=== PATIENT | male | born 1950 | race Hispanic/Latino ===

== ENCOUNTER 2018-07-31 09:59 | Observation (INO) | payer MEDICARE ==
--- NOTE | 2018-07-28 12:26 | Diagnostic Imaging Report ---
EXAMINATION: CHEST 2 VIEWS INDICATION: Pre-admit COMPARISON: None FINDINGS: TUBES and LINES: None. LUNGS: Low lung volumes. There is no evidence of pneumonia or pulmonary edema. Mild patchy bibasilar opacities, likely atelectasis. PLEURA: No pleural effusion or pneumothorax. HEART AND MEDIASTINUM: The cardiomediastinal silhouette is unremarkable. Atherosclerotic calcifications of the aortic arch. BONES AND SOFT TISSUES: No acute osseous lesion. Soft tissues are unremarkable. UPPER ABDOMEN: No free air under the diaphragm. Cholecystectomy clips project over the right upper quadrant. IMPRESSION: No acute radiographic amount he. Signed by: Dr. Waylon Beach MD on 07/28/2018 12:22 PM
[~2018-07-31] VITALS: Ht 167.6 cm; Wt 109.5 kg
[~2018-07-31 09:59] MED LIST: ATENOLOL50 MG PO; ATORVASTATIN CA10 MG PO; FLUTICASONE; HYZAAR 100-12.1 EACH PO; LATANOPROST2.5 ML OP; LORATADINE10 MG PO; METFORMIN HCL500 MG PO; NABUMETONE500 MG PO
--- OUTSIDE RECORDS SUMMARY | 2018-07-31 10:02 | XMS REPORT ---
Author Author [facility] Address Unknown Phone Unavailable Care Team Providers Care [employer]als[employer] Apprentice Name Role Phone SELINA RENEE Unavailable Unavailable Payers Payer Name Policy Type Policy Number Effective Date Expiration Date Problems This patient has no known problems. Allergies, Adverse Reactions, Alerts Allergy Name Allergy Type Status Severity Reaction(s) Onset Date Inactive Date Treating Clinician Comments No Known Allergies DA Active U 2017-06-27 00:00:00 Medications This patient has no known medications. Results Test Description Test Time Test Comments Text Results Atomic Results Result Comments CHEST 2 VIEWS 2018-07-28 12:21:00 [place] [id number] Patient Name: NINA BONE MR #: [id number] : 1950 Age/Sex: 68/M Req #: [id number] Adm Physician: Ordered by: SELNIA RENEE MD Report #: [id number] Location: OR Room/Bed: Procedure: [id number] DX/CHEST 2 VIEWS Exam Date: 07/28/18 Exam Time: 1125 REPORT STATUS: Signed EXAMINATION: CHEST 2 VIEWS INDICATION: Pre-admit COMPARISON: None FINDINGS: TUBES and LINES: None. LUNGS: Low lung volumes. There is no evidence of pneumonia or pulmonary edema. Mild patchy bibasilar opacities, likely atelectasis. PLEURA: No pleural effusion or pneumothorax. HEART AND MEDIASTINUM: The cardiomediastinal silhouette is unremarkable. Atherosclerotic calcifications of the aortic arch. BONES AND SOFT TISSUES: No acute osseous lesion. Soft tissues are unremarkable. UPPER ABDOMEN: No free air under the diaphragm. Cholecystectomy clips project over the right upper quadrant. IMPRESSION: No acute radiographic amount he. Signed by: Dr. Chandler Jacobs MD on 07/28/2018 12:22 PM Dictated By: CHANDLER JACOBS MD 1222 Transcribed By: CHRISTIE on 07/28/18 1222 COPY TO: SELINA RENEE MD
--- OUTSIDE RECORDS SUMMARY | 2018-07-31 10:02 | XMS REPORT | Clinical Summary ---
Author Author [facility] Organization [facility] [employer] Address Unknown Phone Unavailable Care Team Providers Care Engine Dispatcher Name Role Phone Radha Corona MD PCP Allergies Comments Active Allergy Reactions Severity Noted Date cough Lisinopril 12/02/2017 Medications End Date Status Medication Sig Dispensed Refills Start Date Active clotrimazole 1 % Apply to both 1 Tube 0 ointmentIndications: feet twice 7 Tinea pedis of both feet daily x 2 weeks. Active blood sugar diagnostic Monitor 100 strip 2 strips (MovableTOUCH ULTRA Glucose 2 7 TEST) strip test times daily stripsIndications: Type 2 DX: Type 2 diabetes mellitus without diabetes complication, without mellitus long-term current use of without insulin (HCC) complication, without long-term current use of insulin (E11.9) Active lancets miscIndications: Monitor 100 each 2 Type 2 diabetes mellitus Glucose 2 7 without complication, times daily without long-term current DX: Type 2 use of insulin (HCC) diabetes mellitus without complication, without long-term current use of insulin (E11.9) 12/20/2018 Active latanoprost (XALATAN) Administer 1 2.5 mL 3 0.005 % ophthalmic drop to both 8 solutionIndications: eyes nightly. Primary open angle glaucoma of right eye, moderate stage 01/09/2019 Active vit Take 1 180 capsule 3 C,J-Hl-qjgfs-lutein-zeaxa capsule by 8 n [id number] mouth 2 (two) sh-jteq-da-mg times a day. capsuleIndications: Macular degeneration of both eyes 04/14/2019 Active loratadine (CLARITIN) 10 Take 1 tablet 30 tablet 2 mg tablet (10 mg total) 8 by mouth daily. Active fluticasone (FLONASE) 50 2 sprays (100 15.8 mL 5 mcg/actuation nasal spray mcg total) by 8 Each Nare route daily. Active losartan-hydrochlorothiaz Take 1 tablet 90 tablet 0 omar (HYZAAR) 50-12.5 mg by mouth 8 per tablet daily. Active atenolol (TENORMIN) 50 MG Take 1 tablet 90 tablet 0 tabletIndications: (50 mg total) 8 Essential hypertension by mouth daily. Active metFORMIN (GLUCOPHAGE) Take 1 tablet 90 tablet 0 500 mg tabletIndications: (500 mg 8 Controlled type 2 total) by diabetes mellitus with mouth 2 (two) diabetic polyneuropathy, times a day without long-term current with meals. use of insulin (HCC) 08/04/2017 blood-glucose meter One touch 1 each 0 kitIndications: Type 2 Monitor Check 7 diabetes mellitus without Glucose 2 complication, without times daily long-term current use of Type 2 insulin (HCC) diabetes mellitus without complication, w/o long-term current use of insulin (E11.9) 10/05/2017 vit Take 1 180 capsule 3 C,T-Bz-mfvqj-lutein-zeaxa capsule by 7 n [id number] mouth 2 (two) os-wguq-gc-mg capsule times a day. 10/31/2017 Discontinued VENTOLIN HFA 90 0 mcg/actuation inhaler 7 10/31/2017 Discontinued HYDROcodone-acetaminophen 0 (NORCO) 5-325 mg per 8 tablet 10/31/2017 Discontinued meloxicam (MOBIC) 15 mg Take 1 tablet 30 tablet 1 tablet (15 mg total) 8 by mouth daily as needed for moderate pain. 08/15/2017 Discontinued tiZANidine (ZANAFLEX) 4 Take 1 tablet 45 tablet 1 MG tablet (4 mg total) 8 by mouth every 8 (eight) hours as needed for muscle spasms for up to 30 days. 10/31/2017 Discontinued lisinopril Take 1 tablet 90 tablet 0 (PRINIVIL,ZESTRIL) 20 mg (20 mg total) 8 tabletIndications: by mouth Essential hypertension daily. 01/18/2018 Discontinued atenolol (TENORMIN) 50 MG Take 1 tablet 90 tablet 1 tabletIndications: (50 mg total) 8 Essential hypertension by mouth daily. 12/02/2017 Discontinued gabapentin (NEURONTIN) Take 1 270 capsule 1 300 mg capsule capsule (300 8 mg total) by mouth 3 (three) times a day. 10/31/2017 Discontinued hydroCHLOROthiazide Take 1 tablet 90 tablet 1 (HYDRODIURIL) 12.5 MG (12.5 mg 8 tablet total) by mouth daily. 01/18/2018 Discontinued metFORMIN (GLUCOPHAGE) Take 1 tablet 90 tablet 1 500 mg tabletIndications: (500 mg 8 Controlled type 2 total) by diabetes mellitus with mouth 2 (two) diabetic polyneuropathy, times a day without long-term current with meals. use of insulin (HCC) 09/14/2017 traMADol (ULTRAM) 50 mg Take 1 tablet 60 tablet 1 tabletIndications: (50 mg total) 8 Sciatica, left side by mouth every 6 (six) hours as needed for moderate pain for up to 30 days. 09/14/2017 tiZANidine (ZANAFLEX) 4 Take 1 tablet 45 tablet 1 MG tablet (4 mg total) 8 by mouth every 8 (eight) hours as needed for muscle spasms for up to 30 days. 12/27/2017 Discontinued losartan-hydrochlorothiaz Take 1 tablet 90 tablet 0 omar (HYZAAR) 50-12.5 mg by mouth 8 per tablet daily. 11/15/2017 terbinafine HCl (LamISIL) Take 1 tablet 15 tablet 0 250 mg tablet (250 mg 8 total) by mouth daily for 15 days. 12/02/2017 Discontinued piroxicam (FELDENE) 20 MG Take 1 30 capsule 0 capsule capsule (20 8 mg total) by mouth daily. 01/18/2018 Discontinued losartan-hydrochlorothiaz TAKE 1 TABLET 90 tablet 0 omar (HYZAAR) 50-12.5 mg BY MOUTH ONCE 8 per tablet DAILY 03/03/2018 Discontinued losartan-hydrochlorothiaz Take 1 tablet 90 tablet 0 omar (HYZAAR) 50-12.5 mg by mouth 8 per tablet daily. 03/03/2018 Discontinued metFORMIN (GLUCOPHAGE) Take 1 tablet 90 tablet 0 500 mg tabletIndications: (500 mg 8 Controlled type 2 total) by diabetes mellitus with mouth 2 (two) diabetic polyneuropathy, times a day without long-term current with meals. use of insulin ([facility]) 03/03/2018 Discontinued atenolol (TENORMIN) 50 MG Take 1 tablet 90 tablet 0 tabletIndications: (50 mg total) 8 Essential hypertension by mouth daily. 03/08/2018 predniSONE (DELTASONE) 20 Take 2 10 tablet 0 mg tablet tablets (40 8 mg total) by mouth daily for 5 days. 04/14/2018 Discontinued loratadine (CLARITIN) 10 Take 1 tablet 30 tablet 2 mg tablet (10 mg total) 8 by mouth daily. 04/14/2018 Discontinued fluticasone (FLONASE) 50 2 sprays (100 15.8 mL 0 mcg/actuation nasal spray mcg total) by 8 Each Nare route daily. 03/03/2018 Discontinued pneumococcal Inject 0.5 mL 0.5 mL 0 polysaccharide 23-valent into the 8 (PNEUMOVAX 23) 25 mcg/0.5 shoulder, mL vaccine thigh, or buttocks once for 1 dose. 06/02/2018 Discontinued losartan-hydrochlorothiaz Take 1 tablet 90 tablet 0 omar (HYZAAR) 50-12.5 mg by mouth 8 per tablet daily. 06/02/2018 Discontinued atenolol (TENORMIN) 50 MG Take 1 tablet 90 tablet 0 tabletIndications: (50 mg total) 8 Essential hypertension by mouth daily. 06/02/2018 Discontinued metFORMIN (GLUCOPHAGE) Take 1 tablet 90 tablet 0 500 mg tabletIndications: (500 mg 8 Controlled type 2 total) by diabetes mellitus with mouth 2 (two) diabetic polyneuropathy, times a day without long-term current with meals. use of insulin ([facility]) 05/14/2018 ondansetron ODT (ZOFRAN Take 1 tablet 30 tablet 0 10/26/201 ODT) 4 MG disintegrating (4 mg total) 8 tablet by mouth every 8 (eight) hours as needed for nausea or vomiting for up to 30 days. 06/12/2018 amoxicillin-pot Take 1 tablet 20 tablet 0 clavulanate (AUGMENTIN) by mouth 2 8 875-125 mg per tablet (two) times a day for 10 days. 07/02/2018 atorvastatin (LIPITOR) 10 Take 1 tablet 90 tablet 1 MG tablet (10 mg total) 8 by mouth daily for 30 days. Active Problems Problem Noted Date Optic nerve cupping of both eyes 01/09/2018 Combined forms of age-related cataract of both eyes 01/09/2018 Macular degeneration of both eyes 01/09/2018 Primary osteoarthritis of left knee 12/20/2017 Bilateral primary osteoarthritis of knee 11/01/2017 Knee pain 10/31/2017 Controlled type 2 diabetes mellitus with diabetic polyneuropathy, without 07/25/2017 long-term current use of insulin Meibomian gland dysfunction (MGD) of upper and lower lids of both eyes 05/10/2017 Glaucoma suspect of both eyes 05/10/2017 Nuclear senile cataract of both eyes 05/10/2017 Erectile dysfunction 04/21/2017 Sciatica, left side 04/21/2017 Obesity (BMI 35.0-39.9 without comorbidity) 01/17/2017 Essential hypertension 08/04/2016 Hyperlipidemia LDL goal <70 08/04/2016 Resolved Problems Problem Noted Date Resolved Date Tinea pedis of both feet 08/04/2016 06/02/2018 Encounters Care Team Description Date Type Specialty Radha Corona MD Controlled type 2 diabetes mellitus with diabetic polyneuropathy, without long-term current use of insulin (HCC) (Primary Dx); Essential hypertension; Hyperlipidemia LDL goal <70; Obesity (BMI 35.0-39.9 without comorbidity); Chronic maxillary sinusitis 06/02/2018 Office Visit Internal Medicine Provider, Unknown 04/20/2018 Orders Only Internal Medicine Radha Corona MD Dizziness (Primary Dx); Viral illness; Nausea and vomiting, intractability of vomiting not specified, unspecified vomiting type 04/14/2018 Office Visit Internal Medicine Radha Corona MD Chronic allergic rhinitis, unspecified seasonality, unspecified trigger (Primary Dx); Controlled type 2 diabetes mellitus with diabetic polyneuropathy, without long- term current use of insulin; Essential hypertension; Obesity (BMI 35.0-39.9 without comorbidity); Immunization due 03/03/2018 Office Visit Internal Medicine Radha Corona MD 01/23/2018 Telephone Family Medicine Radha Corona MD Encounter for diabetic foot exam (Primary Dx) 01/19/2018 Clinical Internal Medicine Support Radha Corona MD Controlled type 2 diabetes mellitus with diabetic polyneuropathy, without long-term current use of insulin; Essential hypertension 01/18/2018 Orders Only Internal Medicine Radha Corona MD 01/18/2018 Refill Internal Medicine Oksana Beaulieu MD 01/12/2018 Telephone Ophthalmology Matt Iniguez MD Primary osteoarthritis of left knee (Primary Dx) 01/10/2018 Clinical Sports Medicine Oksana Osborne MD 01/10/2018 Telephone Ophthalmology Oksana Beaulieu MD Optic nerve cupping of both eyes (Primary Dx); Combined forms of age-related cataract of both eyes; Macular degeneration of both eyes 01/09/2018 Office Visit Ophthalmology Matt Iniguez MD Primary osteoarthritis of left knee (Primary Dx) 12/27/2017 Clinical Sports Medicine Radha Oneill MD 12/27/2017 Refill Internal Medicine Matt Iniguez MD Bilateral primary osteoarthritis of knee (Primary Dx); Primary osteoarthritis of left knee 12/20/2017 Office Visit Sports Medicine Oksana Beaulieu MD Primary open angle glaucoma of right eye, moderate stage (Primary Dx) 12/20/2017 Orders Only Ophthalmology Oksana Beaulieu MD 12/20/2017 Documentation Ophthalmology Richard Holguin MA Testing Only 12/14/2017 Clinical Ophthalmology Support Radha Corona MD Essential hypertension (Primary Dx); Controlled type 2 diabetes mellitus with diabetic polyneuropathy, without long- term current use of insulin 12/02/2017 Office Visit Internal Medicine Sherrie Ott MA Controlled type 2 diabetes mellitus with diabetic polyneuropathy, without long-term current use of insulin (Primary Dx) 12/02/2017 Orders Only Internal Medicine Matt Iniguez MD Primary osteoarthritis of right knee (Primary Dx) 11/08/2017 Clinical Sports Medicine Support Matt Iniguez MD 11/04/2017 Telephone Sports Medicine Matt Iniguez MD Bilateral primary osteoarthritis of knee (Primary Dx); Chronic pain of right knee; Chronic pain of left knee 11/01/2017 Office Visit Sports Medicine Radha Corona MD Controlled type 2 diabetes mellitus with diabetic polyneuropathy, without long-term current use of insulin (Primary Dx); Essential hypertension; Hyperlipidemia LDL goal <70; Knee pain, unspecified chronicity, unspecified laterality; Tinea pedis of both feet; Cough 10/31/2017 Office Visit Internal Medicine Oksana Beaulieu MD Optic nerve cupping of both eyes (Primary Dx) 09/08/2017 Office Visit Ophthalmology Radha Corona MD Controlled type 2 diabetes mellitus with diabetic polyneuropathy, without long-term current use of insulin (Primary Dx); Hyperlipidemia LDL goal <70; Essential hypertension; Sciatica, left side 08/15/2017 Office Visit Internal Medicine after 07/30/2017 Immunizations Name Dates Previously Given Next Due FLUZONE HIGH-DOSE PF 03/03/2018, 04/21/2017 Pneumococcal Conjugate 04/27/2017 13-Valent Pneumococcal 03/03/2018 Polysaccharide Family History Medical History Relation Name Comments Hypertension Brother Diabetes Father No Known Problems Maternal Grandfather No Known Problems Maternal Grandmother Glaucoma Mother Hypertension Mother No Known Problems Paternal Grandfather No Known Problems Paternal Grandmother Diabetes Sister Hypertension Sister Relation Name Status Comments Brother Alive Father Maternal Grandfather Maternal Grandmother Mother Paternal Grandfather Paternal Grandmother Sister Social History Date Tobacco Use Types Packs/Day Years Used Quit: 1984 Former Smoker Cigarettes 1 20 Smokeless Tobacco: Never Used Comments: patient quit 25 years ago Alcohol Use Drinks/Week oz/Week Comments Yes rarely Sex Assigned at Date Recorded Not on file Industry Job Start Date Occupation Not on file Not on file Not on file Travel End Travel History Travel Start No recent travel history available. Last Filed Vital Signs Time Taken Vital Sign Reading 06/02/2018 8:48 AM ORTHOTIST PROSTHETIST Blood Pressure 134/75 06/02/2018 8:48 AM ORTHOTIST PROSTHETIST Pulse 66 06/02/2018 8:48 AM ORTHOTIST PROSTHETIST Temperature 36.4 C (97.6 F) 03/03/2018 9:27 AM CDT Respiratory Rate 18 06/02/2018 8:48 AM ORTHOTIST PROSTHETIST Oxygen Saturation 99% - Inhaled Oxygen - Concentration 06/02/2018 8:48 AM ORTHOTIST PROSTHETIST Weight 105 kg (232 lb) 06/02/2018 8:48 AM ORTHOTIST PROSTHETIST Height 167.6 cm (5' 6") 06/02/2018 8:48 AM ORTHOTIST PROSTHETIST Body Mass Index 37.45 Plan of Treatment Health Maintenance Due Date Last Done Comments SHINGLES VACCINES (2 of 04/27/2018 03/02/2018 2) URINE MICROALBUMIN 10/31/2018 10/31/2017, 08/04/2016 DIABETIC RETINAL EYE EXAM 01/09/2019 01/09/2018, 01/09/2018, 01/09/2018, Additional history exists DIABETIC FOOT EXAM 01/19/2019 01/19/2018, 01/19/2018, 01/19/2018 COLON CANCER SCREENING 01/22/2027 01/22/2017 PNEUMOCOCCAL-13 Completed 04/27/2017, 04/27/2017 INFLUENZA VACCINE Completed 03/03/2018, 04/21/2017, 04/21/2017 PNEUMOCOCCAL Completed 03/03/2018 POLYSACCHARIDE VACCINE AGE 65 AND OVER Procedures Comments Procedure Name Priority Date/Time Associated Diagnosis POC GLYCOSYLATED Routine 06/02/2018 Controlled type 2 HEMOGLOBIN (HGB A1C) 9:05 AM ORTHOTIST PROSTHETIST diabetes mellitus with diabetic polyneuropathy, without long-term current use of insulin (HCC) MRI BRAIN W WO CONTRAST Routine 04/20/2018 MRI ANGIOGRAM NECK W Routine 04/20/2018 CONTRAST MRA HEAD WO CONTRAST Routine 04/20/2018 CT HEAD WO CONTRAST Routine 04/20/2018 PNEUMOCOCCAL Routine 03/03/2018 POLYSACCHARIDE VACCINE 1:28 PM CDT 23-VALENT=>2YO SQ IM FLUZONE HIGH-DOSE PF Routine 03/03/2018 (0.5ML SYRINGE) 1:28 PM CDT POC GLYCOSYLATED Routine 03/03/2018 Controlled type 2 HEMOGLOBIN (HGB A1C) 10:27 AM CDT diabetes mellitus with diabetic polyneuropathy, without long-term current use of insulin IA ARTHROCENTESIS Routine 01/10/2018 Primary osteoarthritis of ASPIR&/INJ MAJOR JT/BURSA 9:15 AM CDT left knee W/O US IA ARTHROCENTESIS Routine 12/27/2017 Primary osteoarthritis of ASPIR&/INJ MAJOR JT/BURSA 10:30 AM CDT left knee W/O US IA ARTHROCENTESIS Routine 12/20/2017 Primary osteoarthritis of ASPIR&/INJ MAJOR JT/BURSA 1:15 PM CDT left knee W/O US AUTOMATED VISUAL FIELD, Routine 12/14/2017 Optic nerve cupping of EXTENDED - OU - BOTH EYES 2:00 PM CDT both eyes Primary open angle glaucoma of right eye, moderate stage OCT, OPTIC NERVE - OU - Routine 12/14/2017 Optic nerve cupping of BOTH EYES 1:59 PM CDT both eyes Primary open angle glaucoma of right eye, moderate stage IA ARTHROCENTESIS Routine 11/08/2017 Primary osteoarthritis of ASPIR&/INJ MAJOR JT/BURSA 1:15 PM CDT right knee W/O US XR KNEE 4+ VW BILATERAL Routine 11/01/2017 Knee sprain, bilateral 8:57 AM CDT IA ARTHROCENTESIS Routine 11/01/2017 Bilateral primary ASPIR&/INJ MAJOR JT/BURSA 8:45 AM CDT osteoarthritis of knee W/O US Chronic pain of left knee MICROALBUMIN / CREATININE Routine 10/31/2017 Hyperlipidemia LDL goal URINE RATIO 11:51 AM CDT <70 LIPID PANEL Routine 10/31/2017 Hyperlipidemia LDL goal 11:51 AM CDT <70 COMPREHENSIVE METABOLIC Routine 10/31/2017 Hyperlipidemia LDL goal PANEL 11:51 AM CDT <70 POC GLYCOSYLATED Routine 10/31/2017 Controlled type 2 HEMOGLOBIN (HGB A1C) 10:55 AM CDT diabetes mellitus with diabetic polyneuropathy, without long-term current use of insulin after 07/30/2017 Results * POC glycosylated hemoglobin (Hb A1C) (06/02/2018 9:05 AM ORTHOTIST PROSTHETIST) Only the most recent of 3 results within the time period is included. POC Hemoglobin A1C 5.6 % Specimen Blood * MRI Brain W Wo Contrast (04/20/2018) Narrative Performed At * MRA Neck W Contrast (04/20/2018) Narrative Performed At * MRA Head Wo Contrast (04/20/2018) Narrative Performed At * CT Head Wo Contrast (04/20/2018) Narrative Performed At * Fluzone High-Dose PF (0.5mL Syringe) (03/03/2018 1:28 PM CDT) * Pneumococcal polysaccharide vaccine 23-valent SQ IM (Pneumovax) (03/03/2018 1:28 PM CDT) * Large Joint Arthrocentesis (01/10/2018 9:15 AM CDT) Narrative Performed At Matt Iniguez MD 01/10/20189:34 AM Large Joint Arthrocentesis Consent given by: patient Site marked: site marked Timeout: Immediately prior to procedure a time out was called to verify the correct patient, procedure, equipment, senior technical support analyst and site/side marked as required Supporting Documentation Indications: pain Procedure Details Preparation: Patient was prepped and draped in the usual sterile fashion Medications provided by specialty pharmacy: yes Location: knee - L knee Left side: Needle size: 20 G Approach: lateral Left knee medications administered: 20 mg sodium hyaluronate (viscosup) 10 mg/mL Patient tolerance: patient tolerated the procedure well with no immediate complications * Large Joint Arthrocentesis (12/27/2017 10:30 AM CDT) Narrative Performed At Matt Iniguez MD 12/27/2017 10:48 AM Large Joint Arthrocentesis Consent given by: patient Site marked: site marked Timeout: Immediately prior to procedure a time out was called to verify the correct patient, procedure, equipment, senior technical support analyst and site/side marked as required Supporting Documentation Indications: pain Procedure Details Preparation: Patient was prepped and draped in the usual sterile fashion Medications provided by specialty pharmacy: yes Location: knee - L knee Left side: Needle size: 20 G Approach: lateral Left knee medications administered: 20 mg sodium hyaluronate (viscosup) 10 mg/mL Patient tolerance: patient tolerated the procedure well with no immediate complications * Large Joint Arthrocentesis (12/20/2017 1:15 PM CDT) Narrative Performed At Matt Iniguez MD 12/20/20172:28 PM Large Joint Arthrocentesis Consent given by: patient Site marked: site marked Timeout: Immediately prior to procedure a time out was called to verify the correct patient, procedure, equipment, senior technical support analyst and site/side marked as required Supporting Documentation Indications: pain Procedure Details Preparation: Patient was prepped and draped in the usual sterile fashion Location: knee - L knee Left side: Needle size: 20 G Approach: lateral Left knee medications administered: 20 mg sodium hyaluronate (viscosup) 10 mg/mL Patient tolerance: patient tolerated the procedure well with no immediate complications * Automated Visual Field, Extended - OU - Both Eyes (12/14/2017 2:00 PM CDT) Narrative Performed At Right Eye Threshold was 24-2. Strategy was ANGUS. Left Eye Threshold was 24-2. Strategy was ANGUS. Notes Ramirez visual field 24 2 was performed.This was unreliable in both eyes due to fixation losses, and also false negative errors.The right eye has a mean deviation of -14.04 and the left eye -2.48.The right eye is a inferior nasal step extending towards an arcuate scotoma.There is a superior nasal step as well.The left eye has nonspecific scattered deviation.This is consistent with the diagnosis of glaucoma particularly in the right eye. * OCT, Optic Nerve - OU - Both Eyes (12/14/2017 1:59 PM CDT) Narrative Performed At Optic nerve OCT was obtained.The global value of 103 and 106 are normal, as is the nerve fiber layer profile.There is some evidence of partial adhesion of the vitreous to the Antonio papillary nerve which may be artificially elevating the nerve fiber layer in both eyes, particularly inferiorly. * Large Joint Arthrocentesis (11/08/2017 1:15 PM CDT) Narrative Performed At Matt Iniguez MD 11/08/20171:18 PM Large Joint Arthrocentesis Consent given by: patient Site marked: site marked Timeout: Immediately prior to procedure a time out was called to verify the correct patient, procedure, equipment, senior technical support analyst and site/side marked as required Supporting Documentation Indications: pain Procedure Details Preparation: Patient was prepped and draped in the usual sterile fashion Location: knee - R knee Right side: Needle size: 20 G Approach: lateral Right knee medications administered: 2 mL bupivacaine 0.5 % (5 mg/mL); 80 mg methylPREDNISolone acetate 80 mg/mL; 5 mL lidocaine 10 mg/mL (1 %) Patient tolerance: patient tolerated the procedure well with no immediate complications * XR Knee 4+ Vw Bilateral (11/01/2017 8:57 AM CDT) Narrative Performed At [facility] Right knee 4 views: Moderate medial and patellofemoral compartment joint space narrowing. No obvious fractures or dislocations Left knee 4 views: Moderate medial and patellofemoral compartment joint space narrowing. No obvious fractures or dislocations Performing Organization Address City/State/Zipcode Phone Number [facility] [address] [place] [address] * Large Joint Arthrocentesis (11/01/2017 8:45 AM CDT) Narrative Performed At Matt Iniguez MD 11/01/2017 10:13 AM Large Joint Arthrocentesis Consent given by: patient Site marked: site marked Timeout: Immediately prior to procedure a time out was called to verify the correct patient, procedure, equipment, senior technical support analyst and site/side marked as required Supporting Documentation Indications: pain Procedure Details Preparation: Patient was prepped and draped in the usual sterile fashion Location: knee - L knee Left side: Needle size: 20 G Approach: lateral Left knee medications administered: 2 mL bupivacaine 0.25 % (2.5 mg/mL); 80 mg methylPREDNISolone acetate 80 mg/mL; 5 mL lidocaine 10 mg/mL (1 %) Patient tolerance: patient tolerated the procedure well with no immediate complications * Microalbumin / creatinine urine ratio (10/31/2017 11:51 AM CDT) Creatinine, urine, random 97 20 - 370 mg/dL [facility] [place] Microalbumin, urine 1.0 See Note: mg/dL [facility] Comment: [place] Reference Range: Reference Range Not established Microalbumin/creatinine 10 <30 mcg/mg creat [facility] ratio Comment: SHEKHAR The ADA defines abnormalities in albumin excretion as follows: Category Result (mcg/mg creatinine) Normal <30 Microalbuminuria 30-299 Clinical albuminuria > JA=605 The ADA recommends that at least two of three specimens collected within a 3-6 month period be abnormal before considering a patient to be within a diagnostic category. Specimen Urine Resulting Agency Comment Performing Organization Information: Site ID: [id number] Name: [facility] Address: [address] [place] [id number] Director: Kristyn Mistry Performing Organization Address [facility] [place] [address] * Lipid panel (10/31/2017 11:51 AM CDT) Cholesterol, total 147 <200 mg/dL [facility] HDL cholesterol 31 (L) >40 mg/dL [facility] [place] Triglycerides 217 (H) <150 mg/dL [facility] [place] LDL cholesterol 85 mg/dL (calc) [facility] calculated Comment: [place] Reference range: <100 Desirable range <100 mg/dL for primary prevention; <70 mg/dL for patients with CHD or diabetic patients with > or=2 CHD risk factors. LDL-C is now calculated using the Delia calculation, which is a validated novel method providing better accuracy than the Friedewald equation in the estimation of LDL-C. Zack RUBIN et al. MORGAN. 2013;310(19): 5806-3303 (http://education.Ringostat.Zarpo/faq/JVL106) Cholesterol/HDL ratio 4.7 <5.0 (calc) [facility] [place] Non-HDL cholesterol 116 <130 mg/dL (calc) [employer] Comment: [place] For patients with diabetes plus 1 major ASCVD risk factor, treating to a non-HDL-C goal of <100 mg/dL (LDL-C of <70 mg/dL) is considered a therapeutic option. Specimen Blood Resulting Agency Comment Performing Organization Information: Site ID: [id number] Name: [employer] [facility] Address: [address] [place] [id number] Director: Kristyn Mistry Performing Organization Address [facility]/[place]code [place] [address] * Comprehensive metabolic panel (10/31/2017 11:51 AM CDT) Glucose 95 65 - 99 mg/dL [employer] Comment: [place] Fasting reference interval BUN, whole blood 20 7 - 25 mg/dL [employer] [place] Creatinine 1.04 0.70 - 1.25 mg/dL [facility] Comment: [place] For patients >49 years of age, the reference limit for Creatinine is approximately 13% higher for people identified as -Namibian. EGFR Non-Afr. Namibian 74 > OR=60 mL/min/1.73m2 [employer] [place] EGFR 86 > OR=60 mL/min/1.73m2 [employer] [place] BUN/creatinine ratio NOT APPLICABLE 6 - 22 (calc) [employer] [place] Sodium 138 135 - 146 mmol/L [employer] [place] Potassium 4.1 3.5 - 5.3 mmol/L [employer] [place] Chloride 103 98 - 110 mmol/L [employer] [facility] CO2 23 20 - 31 mmol/L [employer] [place] Calcium 9.4 8.6 - 10.3 mg/dL [employer] [place] Protein 7.5 6.1 - 8.1 g/dL [employer] [place] Albumin, S 4.0 3.6 - 5.1 g/dL [employer] [place] Globulin, total 3.5 1.9 - 3.7 g/dL (calc) [employer] [place] Albumin/globulin ratio 1.1 1.0 - 2.5 (calc) [employer] [place] Total bilirubin 0.5 0.2 - 1.2 mg/dL [employer] [place] Alkaline phosphatase 45 40 - 115 U/L [employer] [place] AST 24 10 - 35 U/L [employer] [facility] ALT 26 9 - 46 U/L [employer] [place] Resulting Agency Comment Performing Organization Information: Site ID: [id number] Name: [facility] Address: [address] [place] [id number] Director: Kristyn Mistry Performing Organization Address City/State/Zipcode Phone Number [facility] [employer] STELLA [address] [place] [address] after 07/30/2017 Insurance Payer Benefit Subscriber ID Type Phone Address Plan / Group TEXANPLUS TEXANPLUS xxxxxxxxx O [facility] (Home) [place] [address] Advance Directives Patient has advance care planning documents on file. For more information, nancy holman contact: Shekhar Bryant [address] [place] [address]
[2018-07-31] MEDS ORDERED: CEFAZOLIN SOD 2 GM/D5W 50ML 50 ML IV ONE (10:13)
[2018-07-31] MEDS ORDERED: BACITRACIN 50,000 UNIT VIAL ONE (12:08)
[2018-07-31] MEDS ORDERED: ACETAMINOPHEN 1000 MG/100 ML IV PRN (15:15)
[2018-07-31] MEDS ORDERED: ONDANSETRON HCL INJ 2MG/ML 2ML 2 MG/ML VIAL IV PRN (15:15)
[2018-07-31] MEDS ORDERED: DIPHENHYDRAMINE HCL INJ 50 MG/ML VIAL IM/IV PRN (15:15)
[2018-07-31] MEDS ORDERED: NALOXONE HCL INJ 0.4 MG/ML AMP IV PRN (15:15)
[2018-07-31] MEDS ORDERED: HYDROMORPHONE 0.2MG/ML-SOD CHL 30ML PCA SYRINGE IV PRN (15:15)
[2018-07-31] MEDS ORDERED: HYDROMORPHONE 0.2MG/ML-SOD CHL 30ML PCA SYRINGE IV ONE (15:21)
--- OUTSIDE RECORDS SUMMARY | 2018-07-31 16:09 | XMS REPORT | Clinical Summary ---
Author Author [facility] Organization [facility] Address Unknown Phone Unavailable Care Team Providers Care Paper Cone Grader Name Role Phone Radha Corona MD PCP Allergies Comments Active Allergy Reactions Severity Noted Date cough Lisinopril 12/02/2017 Medications End Date Status Medication Sig Dispensed Refills Start Date Active clotrimazole 1 % Apply to both 1 Tube 0 ointmentIndications: feet twice 7 Tinea pedis of both feet daily x 2 weeks. Active blood sugar diagnostic Monitor 100 strip 2 strips ([employer] RunwayTOUCH ULTRA Glucose 2 7 TEST) strip test [...] Active vit Take 1 180 capsule 3 C,R-Tc-gnehn-lutein-zeaxa capsule by 8 n [phone] mouth 2 (two) hk-dakt-bj-mg times a day. capsuleIndications: Macular degeneration of [...] 10/05/2017 vit Take 1 180 capsule 3 C,S-Mt-roaob-lutein-zeaxa capsule by 7 n [phone] mouth 2 (two) ow-ilvx-dl-mg capsule times a day. 10/31/2017 Discontinued VENTOLIN [...] long-term current with meals. use of insulin ([facility]) 03/03/2018 Discontinued atenolol (TENORMIN) 50 MG Take [...] long-term current with meals. use of insulin ([facility]) 05/14/2018 ondansetron ODT (ZOFRAN Take 1 tablet [...] knee 12/20/2017 Office Visit Sports Medicine Oksana Baeulieu MD Primary open angle glaucoma of right [...] Taken Vital Sign Reading 06/02/2018 8:48 AM MULTICULTURAL MANAGER Blood Pressure 134/75 06/02/2018 8:48 AM MULTICULTURAL MANAGER Pulse 66 06/02/2018 8:48 AM MULTICULTURAL MANAGER Temperature 36.4 C (97.6 F) 03/03/2018 9:27 AM CDT Respiratory Rate 18 06/02/2018 8:48 AM MULTICULTURAL MANAGER Oxygen Saturation 99% - Inhaled Oxygen - Concentration 06/02/2018 8:48 AM MULTICULTURAL MANAGER Weight 105 kg (232 lb) 06/02/2018 8:48 AM MULTICULTURAL MANAGER Height 167.6 cm (5' 6") 06/02/2018 8:48 AM MULTICULTURAL MANAGER Body Mass Index 37.45 Plan of Treatment [...] type 2 HEMOGLOBIN (HGB A1C) 9:05 AM MULTICULTURAL MANAGER diabetes mellitus with diabetic polyneuropathy, without long-term [...] polyneuropathy, without long-term current use of insulin SC ARTHROCENTESIS Routine 01/10/2018 Primary osteoarthritis of ASPIR&/INJ MAJOR JT/BURSA 9:15 AM CDT left knee W/O US SC ARTHROCENTESIS Routine 12/27/2017 Primary osteoarthritis of ASPIR&/INJ MAJOR JT/BURSA 10:30 AM CDT left knee W/O US SC ARTHROCENTESIS Routine 12/20/2017 Primary osteoarthritis of ASPIR&/INJ [...] angle glaucoma of right eye, moderate stage SC ARTHROCENTESIS Routine 11/08/2017 Primary osteoarthritis of ASPIR&/INJ MAJOR JT/BURSA 1:15 PM CDT right knee W/O US XR KNEE 4+ VW BILATERAL Routine 11/01/2017 Knee sprain, bilateral 8:57 AM CDT SC ARTHROCENTESIS Routine 11/01/2017 Bilateral primary ASPIR&/INJ MAJOR [...] glycosylated hemoglobin (Hb A1C) (06/02/2018 9:05 AM MULTICULTURAL MANAGER) Only the most recent of 3 results [...] to verify the correct patient, procedure, equipment, support engineer and site/side marked as required Supporting Documentation [...] to verify the correct patient, procedure, equipment, support engineer and site/side marked as required Supporting Documentation [...] to verify the correct patient, procedure, equipment, support engineer and site/side marked as required Supporting Documentation [...] to verify the correct patient, procedure, equipment, support engineer and site/side marked as required Supporting Documentation [...] Performing Organization Address City/State/Zipcode Phone Number [facility] [address] [place] [address] * Large Joint Arthrocentesis (11/01/2017 8:45 AM CDT) Narrative Performed At Matt Iniguez MD 11/01/2017 10:13 AM Large Joint Arthrocentesis Consent given by: patient Site marked: site marked Timeout: Immediately prior to procedure a time out was called to verify the correct patient, procedure, equipment, support engineer and site/side marked as required Supporting Documentation [...] 97 20 - 370 mg/dL [facility] [place] Microalbumin, urine 1.0 See Note: mg/dL [facility] Comment: [place] Reference Range: Reference Range Not established Microalbumin/creatinine 10 <30 mcg/mg creat [facility] ratio Comment: SHEKHAR The ADA defines abnormalities in albumin excretion as follows: Category Result (mcg/mg creatinine) Normal <30 Microalbuminuria 30-299 Clinical albuminuria > ZO=943 The ADA recommends that at least two of three specimens collected within a 3-6 month period be abnormal before considering a patient to be within a diagnostic category. Specimen Urine Resulting Agency Comment Performing Organization Information: Site ID: RGA Name: [facility] Address: [address] [place] [phone] Director: Kristyn Mistry Performing Organization Address [facility] Hospitalcode [place] [address] * Lipid panel (10/31/2017 11:51 AM CDT) Cholesterol, total 147 <200 mg/dL [facility] HDL cholesterol 31 (L) >40 mg/dL [facility] [place] Triglycerides 217 (H) <150 mg/dL [facility] [place] LDL cholesterol 85 mg/dL (calc) [facility] Comment: [place] Reference range: <100 Desirable range <100 mg/dL for primary prevention; <70 mg/dL for patients with CHD or diabetic patients with > or=2 CHD risk factors. LDL-C is now calculated using the Delia calculation, which is a validated novel method providing better accuracy than the Friedewald equation in the estimation of LDL-C. Zack RUBIN et al. MORGAN. 2013;310(19): 5875-2503 (http://education.[employer].Kiyon/faq/QUA595) Cholesterol/HDL ratio 4.7 <5.0 (calc) [facility] [place] Non-HDL cholesterol 116 <130 mg/dL (calc) [facility] Comment: [place] For patients with diabetes plus 1 major ASCVD risk factor, treating to a non-HDL-C goal of <100 mg/dL (LDL-C of <70 mg/dL) is considered a therapeutic option. Specimen Blood Resulting Agency Comment Performing Organization Information: Site ID: RGA Name: [facility] Address: [address] [place] [id number] Director: Kristyn Mistry Performing Organization Address [facility]/[place] [address] * Comprehensive metabolic panel (10/31/2017 11:51 AM CDT) Glucose 95 65 - 99 mg/dL [facility] Comment: [place] Fasting reference interval BUN, whole blood 20 7 - 25 mg/dL [facility] [place] Creatinine 1.04 0.70 - 1.25 mg/dL [facility] Comment: [place] For patients >49 years of age, the reference limit for Creatinine is approximately 13% higher for people identified as -Malaysian. EGFR Non-Afr. Malaysian 74 > OR=60 mL/min/1.73m2 [facility] [place] EGFR 86 > OR=60 mL/min/1.73m2 [facility] [place] BUN/creatinine ratio NOT APPLICABLE 6 - 22 (calc) [facility] [place] Sodium 138 135 - 146 mmol/L [facility] [place] Potassium 4.1 3.5 - 5.3 mmol/L [facility] [place] Chloride 103 98 - 110 mmol/L [employer] [facility] CO2 23 20 - 31 mmol/L [facility] [place] Calcium 9.4 8.6 - 10.3 mg/dL [facility] [place] Protein 7.5 6.1 - 8.1 g/dL [facility] [place] Albumin, S 4.0 3.6 - 5.1 g/dL [facility] [place] Globulin, total 3.5 1.9 - 3.7 g/dL (calc) [facility] [place] Albumin/globulin ratio 1.1 1.0 - 2.5 (calc) [facility] [place] Total bilirubin 0.5 0.2 - 1.2 mg/dL [facility] [place] Alkaline phosphatase 45 40 - 115 U/L [facility] [place] AST 24 10 - 35 U/L [employer] [facility] ALT 26 9 - 46 U/L [facility] [place] Resulting Agency Comment Performing Organization Information: Site ID: RGA [facility]: [facility] Address: [address] [place] [id number] Director: Kristyn Mistry Performing Organization Address City/State/Zipcode Phone Number [facility] [place] [address] [place] [address] after 07/30/2017 Insurance Payer Benefit Subscriber ID Type Phone Address Plan / Group TEXANPLUS TEXANPLUS xxxxxxxxx O [facility] (Home) [place] [address] Advance Directives Patient has advance care planning documents on file. For more information, nancy holman contact: Shekhar Bryant [address] [place] [address]
--- NOTE | 2018-07-31 16:19 | Diagnostic Imaging Report ---
Radiographs of the left knee - 2 views HISTORY: Pain COMPARISON: None available. FINDINGS: Bones: No acute displaced fracture. Osseous alignment is within normal limits. Joints: Patient status post left knee replacement with associated postsurgical change. The surgical hardware is intact without evidence of failure or loosening. Soft tissues: The soft tissues appear unremarkable. IMPRESSION: Patient status post left knee replacement with associated postsurgical change. The surgical hardware is intact without evidence of failure or loosening. Signed by: Dr. Michoacano Downey M.D. on 07/31/2018 4:16 PM
--- NOTE | 2018-07-31 16:20 | NUR ---
RECEIVED PATIENT FROM PACU, PT IS WEARING THIGH HIGH RIKA HOSE AND FOOT SCDs, PATIENT IS RECEIVING 02 AT 2 LITERS MINUTE, HE ALERT AND ORIENTED, NIECE IS AT BEDSIDE, HOB IS LOW FOWLERS, CALL LIGHT IS WITHIN REACH, DIETITIAN TEACHER IS SET TO TO 0.1 MG/10 MINUTES, NO BASAL INFUSION,, PT'S BELONGINGS ARE WITHIN REACH, BED IS IN LOW POSITION, NO DISTRESS NOTED.
[2018-07-31] MEDS: SODIUM CHLORIDE 0.9% 1000ML 1,000 ML IV SCH (16:29)
[2018-07-31 16:37] VITALS: BP 116/54
[2018-07-31 17:07] VITALS: BP 116/64
[2018-07-31 17:27] VITALS: BP 116/54
[2018-07-31] MEDS ORDERED: EPHEDRINE SULFATE INJ 50 MG/10 ML SYR ONE (18:43)
[2018-07-31] MEDS ORDERED: LIDOCAINE HCL 2% LOCAL INJ 5 ML SDV VIAL INJ ONE (18:43)
[2018-07-31] MEDS ORDERED: SEVOFLURANE INHAL SOLN 250 ML PEN BTL ONE (18:43)
[2018-07-31] MEDS ORDERED: PROPOFOL IV EMULSION 10 MG/ML 20 ML VIAL ONE (18:43)
[2018-07-31] MEDS ORDERED: LIDOCAINE 2% /EPINEPHRINE 20 ML SDV INJ ONE (18:44)
[2018-07-31] MEDS ORDERED: ROPIVACAINE 0.5% 5 MG/ML 30 ML SDV ONE (18:44)
[2018-07-31] MEDS ORDERED: MIDAZOLAM HCL 2 MG/2 ML VIAL ONE (18:48)
[2018-07-31] MEDS ORDERED: FENTANYL CITRATE/PF 100MCG/2 ML INJ ONE (18:48)
[2018-07-31] MEDS ORDERED: KETAMINE HCL INJ 50 MG/ML 10 ML VIAL ONE (18:48)
--- NOTE | 2018-07-31 18:57 | NUR ---
CALLED DR. RUBIO, [facility] ANSWERING [facility], SPOKE WITH SILVANA, REPORTED PT'S , ADMITTING DIAGNOSES.
[2018-07-31 20:00] VITALS: BP 118/57
[2018-07-31] MEDS: CEFAZOLIN SOD 1 GM/NS 50ML 50 ML IV SCH (20:00)
--- NOTE | 2018-07-31 20:00 | NUR ---
INITIAL ASSESSMENT COMPLETE, CALL LIGHT IN REACH, FAMILY AT BEDSIDE, LEFT KNEE WITH DRESSING CDI, NO DISTRESS NOTED, REINFORCING IRON AND REBAR WORKERS PUMP ON PT, TEACHING OF USE OF PUMP, VERBALIZED UNDERSTANDING, VS STABLE, TOLD TO CALL FOR NEEDS
[2018-07-31] MEDS ORDERED: ZOLPIDEM TARTRATE 5 MG TAB PO PRN (21:00)
[2018-07-31 23:00] VITALS: BP 134/62
[2018-08-01] VITALS (8 sets, daily range): BP systolic 116–197; BP diastolic 54–88
[2018-08-01] MEDS: SODIUM CHLORIDE 0.9% 1000ML 1,000 ML IV SCH ×2 (01:04→12:50)
[2018-08-01] MEDS: CEFAZOLIN SOD 1 GM/NS 50ML 50 ML IV SCH ×2 (04:00→12:50)
--- NOTE | 2018-08-01 04:00 | NUR ---
PT AWAKE, ENCOURAGED TO USE PAIN PUMP IF IN PAIN, PT STATES HE FORGETS, IV INTACT, TELE ON PT, CALL LIGHT IN REACH, FAMILY AT BEDSIDE
--- NOTE | 2018-08-01 04:43 | Consultation ---
DATE OF CONSULTATION: REASON FOR CONSULTATION: Postop medical management. HISTORY OF PRESENT ILLNESS: The patient is a 68-year-old gentleman who is status post left knee arthroplasty, who is doing well postoperatively. Pain is controlled. REVIEW OF SYSTEMS: Denies any chest pain, fever, chills, nausea, vomiting, headache, shortness of breath, or dizziness on review of systems. PAST MEDICAL HISTORY: Significant for hypertension, diabetes and hyperlipidemia. MEDICATIONS: See MAR. ALLERGIES: NONE. SOCIAL HISTORY: Nonsmoker and nondrinker. . FAMILY HISTORY: Noncontributory. PHYSICAL EXAMINATION VITALS: 96.1, pulse 86, blood pressure 116/54, sats 99%. GENERAL: No apparent distress. CARDIOVASCULAR: Regular rate and rhythm. LUNGS: Clear to auscultation bilaterally. NECK: Supple. No lymphadenopathy. ABDOMEN: Good bowel sounds. Soft and nontender. EXTREMITIES: No clubbing or cyanosis. NEUROLOGIC: Nonfocal. ASSESSMENT AND PLAN 1. Left knee pain: Continue with postoperative care and pain control. 2. Anemia: Check a CBC. 3. Hypertension: Continue with his medications at discharge. 4. Diabetes: Continue on medications. 5. Hyperlipidemia: Continue with his cholesterol medicine at discharge. Please see hospital chart for full details. Job#: [id number] [place]
[2018-08-01 06:45] LABS: HEMATOCRIT 32.2 % (38.2-49.6); HEMOGLOBIN 10.6 g/dL (14.0-18.0)
[2018-08-01] MEDS: LATANOPROST(OPTH) 2.5 ML BTL OP SCH ×2 (09:00→10:22)
[2018-08-01] MEDS: ATENOLOL 50 MG TAB PO SCH ×2 (09:00→10:06)
[2018-08-01] MEDS: METFORMIN HCL 500 MG TAB PO SCH ×3 (09:00→15:41)
[2018-08-01] MEDS: LOSARTAN POTASSIUM 100 MG TAB PO SCH ×2 (10:00→10:06)
[2018-08-01] MEDS: LORATADINE 10 MG TAB PO SCH (10:06)
[2018-08-01] MEDS: FLUTICASONE PROPIONATE NASAL SPRAY NS SCH (10:06)
[2018-08-01] MEDS: NABUMETONE 500 MG PO SCH ×3 (10:07→15:41)
--- NOTE | 2018-08-01 13:10 | NUR ---
SOCIAL WORK INITIAL ASSESSMENT Derrick Builder to bedside to discuss plan of care with patient/family. CM/SW role and care transitions discussed. Anticipated discharge plan discussed along with duration of care. CM/SW discussed patients right to make decisions in care. CM/SW work hours given. Patient lives: IN HOUSE WITH FAMILY Admit/Transfer: VIA HOME POA/Emergency contact: Current/Previous Home Health: NONE PCP/Follow-up Care: FLO Current/Previous DME: [facility] Other Services: NONE Employment Status: RETIRED Areas of Concerns: NONE Referral Needs: MAY NEED HOME HEALTH, CPM MACHINE IN ROOM Education Needs: NA IMM/LOPEZ given and signed (if applicable): LOPEZ Goal for discharge: RETURN HOME CM/SW left business card at the bedside with contact information. Name and number was also written on the patients whiteboard. Patient verbalized understanding of discussion. CM will follow-up with ongoing discharge and transition of care needs.
--- NOTE | 2018-08-01 14:40 | NUR ---
Visit made by the Spiritual Care Department Pastoral Visitor, Rosey Villasenor. PV provided pastoral presence, prayer, hospitality, and supportive listening. Pastoral Visitor informed pt/family of the scope of [employer] and availability. JOSE MOJICA Metal Cut Off Saw Tender Spiritual Care Department O: [phone] Pager: [phone] ([phone] number calling from)
--- NOTE | 2018-08-01 15:17 | NUR ---
Patient blood pressure noted to be high. 198/90. Call placed to Dr. Mohan and new order for blood pressure meds prn. call placed to Dr. Coelho to inform that patient is c/o severe pain. BOBBIN DUMPER not helping. PRN IV tylenol was given as well
--- NOTE | 2018-08-01 15:29 | NUR ---
Rcvd a one time dose from Dr. Mohan for pain meds until Dr. Coelho returns phone call. Patient is 03/29.
[2018-08-01] MEDS ORDERED: HYDROCODONE/APAP 7.5MG-325MG 1 EA TAB PO ONE (15:30)
[2018-08-01] MEDS ORDERED: HYDRALAZINE HCL 20 MG/ML VIAL IV PRN (15:30)
[2018-08-01] MEDS ORDERED: MORPHINE SULFATE INJ 4 MG/ML INJ 1ML IV PRN (16:30)
[2018-08-01] MEDS ORDERED: RIVAROXABAN 10 MG TABLET PO SCH (17:00)
--- NOTE | 2018-08-01 19:11 | NUR ---
WALKING ROUNDS PERFORMED, RECEIVED PT LAYING SEMI FOWLERS IN BED, AAOX3, RR EVEN AND NON-LABORED, ON RA. NO S/SX OF DISTRESS NOTED. DRESSING TO (L) KNEE NOTED TO BE CDI. LEFT PT LAYING SEMI FOWLERS IN BED, BED IN LOW LOCKED POSITION, SIDE RAILS UPX2, CALL LIGHT AND PHONE WITHIN REACH.
[2018-08-01] MEDS: HYDROCODONE/APAP 5MG-325MG TAB PO PRN (19:16)
[2018-08-01] MEDS ORDERED: ATORVASTATIN 10 MG TAB PO SCH (21:00)
--- NOTE | 2018-08-01 21:33 | NUR ---
AFTER CPM REMOVED PT REFUSING TO WEAR PLEXI PUMPS. PT WOULD RATHER WEAR HIS HOME CPM MACHINE TO (L)LE. TEACHING PROVIDED FOR USE OF PLEXI, PT VERBALIZED UNDERSTANDING BUT WOULD STILL LIKE TO USE HOME PUMP INSTEAD.
[2018-08-02] VITALS: BP 145/75
[2018-08-02] MEDS: HYDROCODONE/APAP 5MG-325MG TAB PO PRN ×4 (00:08→14:24)
[2018-08-02 04:00] VITALS: BP_SYST 167; BP_SYST 168; BP_DIAS 72; BP_DIAS 73
--- NOTE | 2018-08-02 06:02 | NUR ---
DRESSING CHANGE PERFORMED TO (L) KNEE, REMOVED TEVIN WRAP AND KERLIX. INCISION NOTED TO BE CDI, STEWART INTACT. APPLIED ABD PAD AND SECURED WITH RIKA HOSE.
[2018-08-02 06:29] LABS: HEMOGLOBIN 10.3 g/dL (14.0-18.0)
--- NOTE | 2018-08-02 07:17 | NUR ---
Received patient. Patient in CPM at this time, no signs of distress. Bed in lowest position, side rails up x2, call light in reach. Will continue to monitor.
[2018-08-02 07:48] VITALS: BP 180/81
[2018-08-02] MEDS: METFORMIN HCL 500 MG TAB PO SCH (07:48)
[2018-08-02] MEDS: LORATADINE 10 MG TAB PO SCH (07:48)
[2018-08-02] MEDS: LATANOPROST(OPTH) 2.5 ML BTL OP SCH (07:48)
[2018-08-02] MEDS: FLUTICASONE PROPIONATE NASAL SPRAY NS SCH (07:48)
[2018-08-02] MEDS: ATENOLOL 50 MG TAB PO SCH (07:49)
[2018-08-02] MEDS: NABUMETONE 500 MG PO SCH (07:49)
[2018-08-02] MEDS: LOSARTAN POTASSIUM 100 MG TAB PO SCH (07:49)
--- NOTE | 2018-08-02 08:51 | Operative Report ---
DATE OF PROCEDURE: July 31, 2018 PREOPERATIVE DIAGNOSIS: End-stage arthritis, left knee. POSTOPERATIVE DIAGNOSIS: End-stage arthritis, left knee. PROCEDURE PERFORMED: A left total knee arthroplasty with Cecy Flex Knee size E femoral component, size 6 tibial component, a 14-mm tibial insert, and a 35-mm patellar button. EXTRUSION DIE COORDINATOR: Karol Burkett NP ANESTHESIA: General endotracheal intubation anesthesia as well as a regional block. IV FLUIDS: Per the anesthesia record. BLOOD LOSS: Approximately 50 mL. COMPLICATIONS: None. OPERATIVE PROCEDURE IN DETAIL: Mr. Gallagher was taken to the operating room and placed in the supine position on the operating room table. Following induction of general anesthesia as well as endotracheal intubation, the patient's left lower extremity was examined under anesthesia. He was found to have mild enlargement of the knee but full passive range of motion of the knee joint. The patient's lower extremity was prepped and draped in the standard surgical fashion. An incision was made over the anterior aspect of the knee joint. This incision was carried through the skin only. The incision was deepened to the level of the extensor mechanism. Full-thickness skin flaps were elevated both medially and laterally. The extensor mechanism was incised in a medial parapatellar fashion. The patella was everted, and osteophytes were removed from the patella, femur and tibia. The fat pad was excised. The patella was measured for later reaming. The knee was placed in flexion, and the anterior horns of the medial and lateral meniscus were excised. The anterior and posterior cruciate ligaments were also sacrificed at this time. The 5-in-1 cutting block was then affixed to the femur, and the femoral cuts were performed. The intercondylar notch cutting block was then affixed to the femur, and the notch cuts were performed. The finishing block was affixed to the femur, and the posterior chamfer cut was performed. Attention was then turned to the tibia. The external tibial alignment guide was affixed to the tibia and adjusted appropriately. The tibial cut was performed. The keel cutting device was affixed to the tibia, and a keel cut was performed. The remaining medial and lateral meniscus were excised. Trial femoral and tibial components were inserted into the knee, and the soft tissues were balanced. A 14-mm trial insert was inserted into the tibial tray, and the knee was reduced, placed through motion and found to be stable. The patella was then reamed, and a 35-mm patella trial was affixed to the undersurface of the patella. The patellofemoral joint was reduced, and the knee was again placed through a range of motion. The patella was found to track appropriately. All trial components were removed. The bone was prepared for cementation. Cement was mixed on the back table. The femoral, tibial and patellar components were then cemented into place. Once the cement had cured, the tibial insert was placed within the tibial tray, and the knee was again reduced, placed through motion and found to be stable. The tourniquet was deflated, and hemostasis was obtained prior to closing the wound. The extensor mechanism was repaired with nonabsorbable sutures in a figure-of-8 fashion. The remaining soft tissues were closed in a multilayer fashion. Sterile dressings were applied. The patient was awakened and taken to the postanesthesia care unit in stable condition. Karol Burkett acted as assistant associate full professor for this case and was necessary for the prepping and draping of the patient as well as retraction of soft tissues that allowed this case to be successful. Job#: [id number]
--- NOTE | 2018-08-02 09:21 | NUR ---
Patient has voided since [place] removal.
--- NOTE | 2018-08-02 09:30 | NUR ---
Patient A/O X3, even respirations on RA. Patient is primarily Dutch speaking with family at bedside. Last BM yesterday, bowel sounds active. Left knee dressing dry and intact, Power hose bilaterally. Patient voids in urinal and uses walker to assist with ambulation. Patient is ambulatory with assist and working with PT. Right hand 20 gauge IV SL. Left knee 1+ non-pitting edema. I.S at bedside. Call light near patient, will continue to monitor.
[2018-08-02 09:40] VITALS: BP 180/81
[2018-08-02] MEDS ORDERED: HYDROCHLOROTHIAZIDE 25 MG TAB PO SCH (10:00)
[2018-08-02 11:57] VITALS: BP 171/75
--- NOTE | 2018-08-02 12:09 | NUR ---
Spoke to pt at bedside. Pt stated that he has 2 walkers and a wheelchair at home. Choice letter for home health and DME was signed and filed in chart. Copy to pt. DC plans were pre-arranged by Dr. Coelho' office as follows: Home Health with [facility] P [phone] / F [phone]; operative report and clinical faxed. TROY called and spoke with Ivonne at [facility] and informed her that pt is pending discharge today. She scheduled him to be seen tomorrow. DME with [facility] P [phone]. Spoke with Oj in office. She said everything is set to be delivered tomorrow. Elevated toilet seat is not covered by insurance, but pt will receive 3-in-1 commode. Gave pt business card for any questions/concerns.
[2018-08-02] MEDS ORDERED: NORCO 5-325 TA1 EACH PO (15:35)
[2018-08-02 15:49] VITALS: BP 173/8
--- NOTE | 2018-08-02 15:50 | NUR ---
Removed patients IV. Catheter tip intact and pressure dressing applied.
--- NOTE | 2018-08-02 16:00 | NUR ---
Patient discharged from facility. Patient gathered all personal belongings, discharge instructions, follow up information, and prescriptions. No signs of distress when leaving facility.
== END 2018-08-02 16:03 | disposition home health service (06) ==
LOC: OR 09:59 → PACU V 15:07 → MED/SURG 16:17
PROVIDERS: ADMIT Specialist; ATTEND Specialist
DX: M17.0 Bilateral primary osteoarthritis of knee (principal); E11.9 Type 2 diabetes mellitus without complications; I11.9 Hypertensive heart disease without heart failure; D64.9 Anemia, unspecified; E78.5 Hyperlipidemia, unspecified; I48.91 Unspecified atrial fibrillation; Z79.01 Long term (current) use of anticoagulants; Z79.899 Other long term (current) drug therapy
CPT/HCPCS: 27447; 36415 ×3; 71046; 73560; 82948 ×3; 85014 ×2; 85018 ×2; 86850; 86900; 86920; 97110 ×2; 97116 ×2; 97139; 97162; 97530 ×2; C1713; G0378 ×3; J0131; J0360; J0690 ×3; J2001 ×2; J2250; J2704; J2795; J7030 ×2